=== PATIENT | female | born 1975 | race Two or more races ===

== ENCOUNTER 2016-09-18 15:22 | Inpatient (IN) | payer MEDICAID ==
[~2016-09-18] VITALS: Ht 149.9 cm; Wt 78.7 kg
[2016-09-18] MEDS ORDERED: LACTATED RINGER'S 1,000 ML IV SCH (15:54)
[2016-09-18] MEDS ORDERED: OXYTOCIN 30 UNITS/LR 500 ML IV SCH (16:00)
[2016-09-18] MEDS ORDERED: CEFAZOLIN 2 GM/50 ML (PMX) 50 ML IV SCH (16:00)
[2016-09-18] MEDS ORDERED: CARBOPROST 250 MCG INJ IM PRN (16:00)
[2016-09-18] MEDS ORDERED: METHYLERGONOVINE 0.2 MG INJ IM PRN (16:00)
[2016-09-18] MEDS ORDERED: MISOPROSTOL 200 MCG TAB PR PRN (16:00)
[2016-09-18] MEDS ORDERED: OXYTOCIN 30 UNITS/LR 500 ML IV PRN (16:00)
[2016-09-18 16:43] VITALS: Ht 149.9 cm; Wt 78.7 kg
[2016-09-18 16:44] VITALS: BP 116/66; PULSE 75; RESP 18
[2016-09-18] MEDS ORDERED: PRENAT PO (16:46)
[2016-09-18 16:52] LABS: ADD SCAN DIFF NO
[2016-09-18] MEDS ORDERED: LACTATED RINGER'S 1,000 ML IV ONE (16:53)
[2016-09-18 16:56] LABS: BASOPHILS % 0.2 % (0.0-2.0); EOSINOPHILS # 0.1 10^3/ul (0.0-0.5); HEMATOCRIT 39.9 % (37.0-47.0); HEMOGLOBIN 13.4 g/dl (12.0-16.0); LYMPHOCYTES # 1.6 10^3/ul (0.8-2.9); LYMPHOCYTES % 14.8 % (15.0-51.0); MEAN CORPUSCULAR HGB CONC 33.6 g/dl (32.0-37.0); MEAN CORPUSCULAR VOLUME 86.4 fl (82.0-101.0); MEAN PLATELET VOLUME 12.1 fl (7.4-10.4); MONOCYTE # 0.7 10^3/ul (0.3-0.9); NEUTROPHIL # 8.3 10^3/ul (1.6-7.5); NEUTROPHILS % 77.4 % (39.0-77.0); PLATELET COUNT 215 10^3/UL (140-415); RED BLOOD COUNT 4.62 10^6/ul (4.20-5.40); RED CELL DISTRIBUTION WIDTH 13.2 % (11.5-14.5); WHITE BLOOD COUNT 10.8 10^3/ul (4.8-10.8)
[2016-09-18] MEDS ORDERED: METOCLOPRAMIDE 10 MG INJ IV ONE (17:00)
[2016-09-18] MEDS ORDERED: FAMOTIDINE 20 MG INJ IV ONE (17:00)
[2016-09-18] MEDS ORDERED: CITRIC ACID/NA CITRATE 30 ML CUP PO ONE (17:00)
[2016-09-18 17:11] LABS: INR 0.83; PROTIME 11.4 Sec (12.2-14.2); PT RATIO 0.9
[2016-09-18 17:12] LABS: PARTIAL THROMBOPLASTIN TIME 26.6 Sec (25.0-35.0)
--- NOTE | 2016-09-18 19:23 | PREOPHP ---
DATE OF ADMISSION: 09/18/2016 HISTORY OF PRESENT ILLNESS: A 41-year-old female, 2, para 1, estimated date of delivery 03/2017, at 39 weeks' gestation is admitted for repeat section. PAST MEDICAL HISTORY: Unremarkable. PAST SURGICAL HISTORY: section and nose surgery. ALLERGIES: NO KNOWN ALLERGIES. FAMILY HISTORY: Diabetes. COURSE: Significant for gestational diabetes. PHYSICAL EXAMINATION: VITAL SIGNS: The patient is afebrile. Vital signs stable. HEAD, NECK AND CHEST: Within normal limits. ABDOMEN: Soft, nontender and gravid. EXTREMITIES: Within normal limits. NEUROLOGIC: Within normal limits. IMPRESSION: at 39 weeks with previous section. The patient does not desire tria l of labor after . PLAN: Delivery by repeat section. Risks, benefits and alternatives of procedure were expl ained to patient. The patient said she understood and gave informed consent for the procedure. Dictated By: ASHIA BYRD/KITTY Conf#: [id number] DID#: [id number]
[2016-09-18] MEDS ORDERED: morphine SULFATE/PF (10 MG/10 ML) INJ ONE (19:42)
[2016-09-18] MEDS ORDERED: FENTAnyl 50 MCG/ML VIAL ONE (19:42)
[2016-09-18] MEDS ORDERED: EPHEDrine SULFATE 50 MG/5 ML SYG ONE (20:18)
[2016-09-18] MEDS ORDERED: ONDANSETRON 4 MG INJ ONE (20:18)
[2016-09-18] MEDS ORDERED: MEPERIDINE 25 MG INJ IV PRN (20:30)
[2016-09-18] MEDS ORDERED: HYDROmorphONE 1 MG/ML SYG IV PRN ×2 (20:30)
[2016-09-18] MEDS ORDERED: FENTAnyl 50 MCG/ML VIAL IV PRN (20:30)
[2016-09-18] MEDS ORDERED: ONDANSETRON 4 MG INJ IV PRN ×2 (20:30)
[2016-09-18] MEDS ORDERED: HYDROmorphONE (0.2 MG/ML) 10ML SYG IV PRN (20:30)
[2016-09-18] MEDS ORDERED: PROCHLORPERAZINE 10 MG INJ IV PRN ×2 (20:30)
[2016-09-18] MEDS ORDERED: ZOLPIDEM 5 MG TAB PO PRN (20:30)
[2016-09-18] MEDS ORDERED: DIPHENHYDRAMINE 50 MG INJ IV PRN ×2 (20:30)
[2016-09-18] MEDS ORDERED: NALOXONE (0.4 MG/ML) INJ IV PRN (20:30)
[2016-09-18] MEDS ORDERED: KETOROLAC 30 MG INJ IV PRN ×2 (20:30)
[2016-09-18] MEDS ORDERED: PHENYLephrine (100 MCG/ML) 5ML SYG ONE (20:35)
[2016-09-18 22:45] VITALS: BP 130/67; PULSE 74; RESP 18
[2016-09-18 23:00] VITALS: BP 128/70; PULSE 97; RESP 18
[2016-09-18 23:15] VITALS: BP 104/60; PULSE 114; RESP 18
[2016-09-18 23:30] VITALS: BP 120/56; PULSE 109; RESP 18
[2016-09-18 23:45] VITALS: BP 117/60; PULSE 111; RESP 18
[2016-09-19] VITALS (10 sets, daily range): BP systolic 91–119; BP diastolic 57–66; PULSE 84–114; RESP 16–20
[2016-09-19] MEDS: LACTATED RINGER'S 1,000 ML IV SCH ×3 (01:09→18:55)
[2016-09-19] MEDS ORDERED: OXYTOCIN 30 UNITS/LR 500 ML IV PRN (01:30)
[2016-09-19] MEDS ORDERED: OXYCODONE/ACETAMINOPHEN (5/325) TAB PO PRN (01:30)
[2016-09-19] MEDS ORDERED: CARBOPROST 250 MCG INJ IM PRN (01:30)
[2016-09-19] MEDS ORDERED: METHYLERGONOVINE 0.2 MG INJ IM PRN (01:30)
[2016-09-19] MEDS ORDERED: LANOLIN 7 GM TUBE TOP PRN (01:30)
[2016-09-19] MEDS ORDERED: MISOPROSTOL 200 MCG TAB PR PRN (01:30)
[2016-09-19] MEDS: OXYTOCIN 30 UNITS/LR 500 ML IV SCH ×2 (02:07→06:17)
--- NOTE | 2016-09-19 03:08 | OPR ---
DATE OF OPERATION: 09/18/2016 PREOPERATIVE DIAGNOSES: at 39 weeks with gestational diabetes and previous secti on. POSTOPERATIVE DIAGNOSES: at 39 weeks with gestational diabetes and previous sect ion. OPERATION PERFORMED: Repeat low transverse section. SURGEON: Ashia Geronimo MD [employer] ATTENDANT: Purvi Miles MD ANESTHESIA: Spinal. ANESTHESIOLOGIST: Dr. Forbes PROCEDURE: The patient was taken to the operating room and placed on the operating table. After varma ccessful spinal anesthesia was given, the patient was placed in supine position. The area was prepa red and draped in the usual sterile fashion. The spinal anesthesia was tested and was satisfactory. Using a scalpel, Pfannenstiel incision was made about 2 fingerbreadths above the symphysis pubis. The incision was carried down to the fascia. The fascia was incised and extended bilaterally with Sands scissors. Two Krunal's were used to separate the fascia from the muscle. The muscle was disse cted down to peritoneum. The peritoneum was secured with Kellys and incised with Metzenbaum scissor s. Using a scalpel, a small transverse incision was made on the lower segment of the uterus. Upon entering the uterine cavity, bandage scissors were inserted to extend the incision bilaterally, curv ed up. Baby was delivered from cephalic presentation. After suctioning clear amniotic fluid, the b sonal was handed off to the team in attendance. Apgars were 9 and 9. The placenta was deliv ered without difficulty. The uterus was closed with #1 Monocryl continuous locked. After assuring hemostasis, both ovaries and tubes were inspected, and all looked normal. The peritoneal cavity was irrigated with warm saline. The peritoneum was closed with 2-0 Vicryl continuous. The fascia was closed with #1 Vicryl continuous in 2 segments. Subcutaneous tissue was reapproximated with 2-0 jamir in. The skin was closed with sandra. ESTIMATED BLOOD LOSS: 600 mL COMPLICATIONS: None. COUNTS: All counts were correct. Dictated By: ASHIA GERONIMO MD GD/NTS Conf#: [id number] DID#: [id number]
[2016-09-19] MEDS: KETOROLAC 30 MG INJ IV PRN ×2 (05:15→16:05)
[2016-09-19 08:50] LABS: ADD SCAN DIFF NO
[2016-09-19 08:59] LABS: BASOPHILS % 0.2 % (0.0-2.0); EOSINOPHILS % 0.2 % (0.0-7.0); HEMATOCRIT 31.4 % (37.0-47.0); HEMOGLOBIN 10.5 g/dl (12.0-16.0); LYMPHOCYTES # 1.3 10^3/ul (0.8-2.9); LYMPHOCYTES % 7.9 % (15.0-51.0); MEAN CORPUSCULAR HEMOGLOBIN 29.1 pg (29.0-33.0); MEAN CORPUSCULAR HGB CONC 33.4 g/dl (32.0-37.0); MEAN PLATELET VOLUME 11.4 fl (7.4-10.4); MONOCYTE # 0.8 10^3/ul (0.3-0.9); MONOCYTES % 5.1 % (0.0-11.0); NEUTROPHIL # 13.6 10^3/ul (1.6-7.5); NEUTROPHILS % 86.1 % (39.0-77.0); PLATELET COUNT 171 10^3/UL (140-415); RED BLOOD COUNT 3.61 10^6/ul (4.20-5.40); RED CELL DISTRIBUTION WIDTH 13.2 % (11.5-14.5); WHITE BLOOD COUNT 15.8 10^3/ul (4.8-10.8)
[2016-09-19] MEDS: SENNA/DOCUSATE NA (8.6MG/50MG) TAB PO SCH ×2 (09:37→21:52)
[2016-09-19] MEDS: IBUPROFEN 800 MG TAB PO SCH (21:53)
[2016-09-20 03:58] VITALS: BP 102/56; PULSE 88; RESP 19
[2016-09-20] MEDS: IBUPROFEN 800 MG TAB PO SCH ×3 (05:47→21:46)
[2016-09-20 07:30] VITALS: BP 124/54; PULSE 90; RESP 18
[2016-09-20] MEDS: SENNA/DOCUSATE NA (8.6MG/50MG) TAB PO SCH ×2 (09:34→20:37)
[2016-09-20 10:13] LABS: ADD SCAN DIFF NO
[2016-09-20 10:19] LABS: BASOPHILS % 0.2 % (0.0-2.0); EOSINOPHILS # 0.1 10^3/ul (0.0-0.5); EOSINOPHILS % 0.9 % (0.0-7.0); HEMATOCRIT 30.8 % (37.0-47.0); LYMPHOCYTES # 1.5 10^3/ul (0.8-2.9); LYMPHOCYTES % 9.5 % (15.0-51.0); MEAN CORPUSCULAR HEMOGLOBIN 28.8 pg (29.0-33.0); MEAN CORPUSCULAR HGB CONC 32.5 g/dl (32.0-37.0); MEAN CORPUSCULAR VOLUME 88.8 fl (82.0-101.0); MEAN PLATELET VOLUME 11.4 fl (7.4-10.4); MONOCYTE # 0.7 10^3/ul (0.3-0.9); MONOCYTES % 4.7 % (0.0-11.0); NEUTROPHIL # 12.9 10^3/ul (1.6-7.5); NEUTROPHILS % 83.9 % (39.0-77.0); PLATELET COUNT 197 10^3/UL (140-415); RED BLOOD COUNT 3.47 10^6/ul (4.20-5.40); RED CELL DISTRIBUTION WIDTH 13.5 % (11.5-14.5); WHITE BLOOD COUNT 15.4 10^3/ul (4.8-10.8)
[2016-09-20 15:40] VITALS: BP 126/71; PULSE 89; RESP 19
--- NOTE | 2016-09-20 19:15 | QN ---
Documentation Comment No complaint Afebrile VSS Abdomen soft ND Stable continue with postop care. ASHIA DENISE MD Sep 20, 2016 19:15
[2016-09-20 20:37] VITALS: BP 135/63; PULSE 85; RESP 18
[2016-09-20] MEDS: OXYCODONE/ACETAMINOPHEN (5/325) TAB PO PRN (20:37)
--- NOTE | 2016-09-20 21:01 | DS ---
DATE OF ADMISSION: 09/18/2016 DATE OF DISCHARGE: 09/22/2016 ADMITTING DIAGNOSIS 1. at term with previous section. 2. Gestational diabetes. HISTORY: This is a 41-year-old female, 2, para 1 at admission, para 2 at the time of discharge, with term , was admitted for repeat section. On 09/18/2016, after obtaining informed consent, the patient underwent a repeat low transverse section. Patient's operation was uncomplicated. Postoperatively, the patient was given a clear liquid diet, which was advanced to a regular diet, which she tolerated well. The patient discharged on postop day #4, after having had adequate bladder and bowel function. CONDITION ON DISCHARGE: Stable. DIET: Regular. ACTIVITIES: Pelvic rest and no strenuous activities. MEDICATIONS 1. Motrin as needed for pain. Continue with: 2. vitamins. 3. Ferrous sulfate. FOLLOWUP: Follow up in clinic in 4 days. FINAL DIAGNOSES 1. Term , delivered by section. 2. Previous section. 3. Gestational diabetes. 4. Mother with single liveborn. Dictated By: ASHIA BYRD/KITTY Conf#: [id number] DID#: [id number] NORMAN
[2016-09-21 04:00] VITALS: BP 123/74; PULSE 85; RESP 18
[2016-09-21] MEDS: OXYCODONE/ACETAMINOPHEN (5/325) TAB PO PRN ×4 (04:08→18:11)
[2016-09-21] MEDS: IBUPROFEN 800 MG TAB PO SCH ×3 (05:57→22:04)
[2016-09-21 08:30] VITALS: BP 125/67; PULSE 78; RESP 19
[2016-09-21] MEDS: SENNA/DOCUSATE NA (8.6MG/50MG) TAB PO SCH ×2 (08:57→22:04)
[2016-09-21] MEDS ORDERED: DIPHTH/TET/ACEL PERTUSS (ADULT) 0.5 ML VIAL IM* ONE (09:00)
[2016-09-21 16:00] VITALS: BP 122/93; PULSE 94; RESP 18
--- NOTE | 2016-09-21 19:07 | QN ---
Documentation Comment No complaint Afebrile VSS Abdomen soft ND Continue with in hospital care. ASHIA DENISE MD Sep 21, 2016 19:07
[2016-09-21 20:00] VITALS: BP 112/55; PULSE 94; RESP 20
[2016-09-22] MEDS: OXYCODONE/ACETAMINOPHEN (5/325) TAB PO PRN ×3 (02:45→14:11)
[2016-09-22 04:00] VITALS: BP 110/60; PULSE 90; RESP 18
[2016-09-22] MEDS: IBUPROFEN 800 MG TAB PO SCH ×2 (06:47→13:05)
[2016-09-22] MEDS: SENNA/DOCUSATE NA (8.6MG/50MG) TAB PO SCH (08:21)
[2016-09-22 08:30] VITALS: BP 120/77; RESP 18
== END 2016-09-22 15:25 | disposition home or self-care (01) | DRG 766 ==
LOC: L-D 15:22 → PP1 09-19 01:16
PROVIDERS: ADMIT Obstetrics & Gynecology; ATTEND Obstetrics & Gynecology
PROC: 10D00Z1 Extraction of Products of Conception, Low, Open Approach (ICD-10-PCS; principal; 2016-09-18 17:00)
DX: O34.219 Maternal care for unspecified type scar from previous cesarean delivery (principal); O24.419 Gestational diabetes mellitus in pregnancy, unspecified control; Z3A.39 39 weeks gestation of pregnancy; Z37.0 Single live birth
CPT/HCPCS: 82962; 85025; 85610; 85730; 86592; 86850; 86885; 86900; 86901; 90715; 99464; J0690; J1885; J2274; J2370; J2405; J2590; J2765; J2790; J3010; J7120

== ENCOUNTER 2016-09-27 16:14 | Emergency (ER) | payer MEDICAID ==
[~2016-09-27] VITALS: Ht 162.6 cm; Wt 68.2 kg
[~2016-09-27 16:14] MED LIST: PRENAT PO
[2016-09-27 16:17] VITALS: Ht 162.6 cm; Wt 68.2 kg
--- NOTE | 2016-09-27 18:19 | ERD ---
ER Documentation Chief Complaint Date/Time DATE: 09/27/16 TIME: 18:15 Chief Complaint CAME IN VIA INTAKE DUE TO FLU LIKE SYMPTOMS WITH NO FEVER PRESENT HPI Patient is a 41-year-old female 9 days after who came to the ER due to concern over jaundice and her . She requested evaluation for herself due to subjective fever last night, breast pain, and dysuria. Patient did not measure her temperature last night, but states that she was alternating between feeling hot and cold. The patient also reports vaginal spotting since her . She denies vaginal discharge or abdominal pain. Denies cough or shortness of breath. Denies nausea or vomiting. The patient saw her zipper cutter yesterday, and a urine culture was sent. Pelvic exam was not performed. ROS All systems reviewed and are negative except as per history of present illness. Medications Home Meds Reported Medications Multivit/Min/Fol Ac/Iron/Pren* ( S*) 1 Tab Tab, 1 TAB PO DAILY, TAB 09/18/16 Allergies Allergies: Coded Allergies: No Known Allergies (Verified Allergy, Unknown, 09/27/16) PMhx/Soc Past medical history: Gestational diabetes Past surgical history: 2 Social history: Denies tobacco or alcohol Medical and Surgical Hx: pt denies Medical Hx, pt denies Surgical Hx Hx Alcohol Use: No Hx Substance Use: No Hx Tobacco Use: No Smoking Status: Never smoker FmHx Family History: No coronary disease, No diabetes Physical Exam Vitals Vital Signs Date Time Temp Pulse Resp B/P Pulse Ox O2 Delivery O2 Flow Rate FiO2 09/27/16 19:03 98.8 86 18 133/76 98 Room Air 09/27/16 16:17 98.9 86 14 138/80 96 Physical Exam Const: Alert, no acute distress Head: Atraumatic Eyes: Normal Conjunctiva, no pallor, no icterus ENT: Normal External Ears, Nose and Mouth. Moist mucous membranes Neck: Full range of motion. No meningismus. Resp: Clear to auscultation bilaterally, no wheezes, no rales Cardio: Regular rate and rhythm, no murmurs Breast: No erythema, warmth, discharge. Abd: Soft, non tender, non distended. No guarding. There is a low abdominal incision clean, dry, intact. No discharge. Pelvic: Declined by patient Skin: No petechiae or rashes Back: No midline or flank tenderness Ext: No cyanosis, or edema Neur: Awake and alert, cranial nerves II through XII intact, moves and feels 4 extremities appropriately. Psych: Normal Mood and Affect Procedures/MDM MDM: Patient is a 41-year-old female who came to the ER because she was concerned about jaundice and her 9-day-old. She requested evaluation while she was in the ER for subjective fever that occurred last night. She also reports vaginal spotting and dysuria. She is afebrile with normal vital signs. She also reports breast pain. She had a benign breast exam. She declined pelvic exam, and stated that she plan to follow-up with her SENIOR SOLUTIONS ENGINEER. She also declined urinalysis, stating that she had a urine culture pending with her SENIOR SOLUTIONS ENGINEER and prefer to follow-up with her. She did not have any abdominal tenderness, signs of wound site infection from the , and denies vaginal discharge. She does not have any symptoms suggestive of pneumonia. Patient did not want want to wait for further workup in the ER, so she will be discharged with instruction to return to the ER for further concerns, and otherwise to follow- up with her SENIOR SOLUTIONS ENGINEER in the next 1-2 days. Departure Diagnosis: Primary Impression: Dysuria Condition: Stable CHRISSIE SOFIA MD Sep 27, 2016 18:19
[2016-09-27 19:03] VITALS: BP 133/76; PULSE 86; RESP 18; TEMP 98.8
== END 2016-09-27 19:00 | disposition home or self-care (01) ==
LOC: E/R 16:14
DX: O99.89 Other specified diseases and conditions complicating pregnancy, childbirth and the puerperium (principal); R30.0 Dysuria
CPT/HCPCS: 99282